=== PATIENT | male | born 1980 | race Caucasian/White ===

== ENCOUNTER 2021-04-29 16:46 | Emergency (ER) | payer OTHER, SELFPAY ==
--- NOTE | ~2021-04-29 | XR_ITS ---
XR chest 2V DATE: 04/29/2021 17:25 INDICATION: Productive cough for 2 days. Nonsmoker. TECHNIQUE: 2 views COMPARISON: None FINDINGS: Normal heart size. There is asymmetric soft tissue prominence in the right infrahilar area. There is ill-defined increased density in the right apical area and both lower lung zones suggesting bilateral pulmonary infiltrates, likely bilateral pneumonia. Continued radiographic follow-up is rec ommended to ensure complete clearing and to exclude any possible pulmonary mass.. No pleural effusion or pulmonary vascular congestion or pneumothorax. Diffuse idiopathic skeletal hyperostosis of the thoracic spine. IMPRESSION: Right apical bilateral lower lung infiltrates suggesting bilateral pneumonia Right infrahilar prominence may be due to pneumonia and/or mass or adenopathy. Short-term radiographi c follow-up is recommended to assure complete clearing. If the findings do not clear after appropriat e interval treatment, CT thorax is recommended to exclude any possible pulmonary mass or hilar mass l esion or lymphadenopathy. Reviewed, dictated and finalized at location A. ECT ADMINISTRATIVE ASSISTANT IMPRESSION: Right apical bilateral lower lung infiltrates suggesting bilateral pneumonia Right infrahilar prominence may be due to pneumonia and/or mass or adenopathy. Short-term radiographic follow-up is recommended to assure complete clearing. I f the findings do not clear after appropriate interval treatment, CT thorax is recommended to exclude any possible pulmonary mass or hilar mass lesion or lymp hadenopathy.
--- NOTE | 2021-04-29 16:55 | ED.URI ---
HPI - URI/Sore Throat General Chief Complaint: Upper Respiratory Infection Stated Complaint: Sinus,cough Source: patient and RN notes reviewed Mode of arrival: ambulatory Limitations: no limitations History of Present Illness HPI Narrative: 40-year-old male presented for complaint of productive cough of green sputum, onset 2 days ago. He also endorses body aches, headache, sinus pressure and congestion and fever of 103.4. Denies chest pain, shortness of breath, palpitations, vomiting or diarrhea. He states he has been having right ear pain for 2 weeks and has been trying to clean it with ear wax drops, stating it sounds like it has got water in it. Patient endorses approximately 4 weeks ago he and his girlfriend had similar symptoms, the girlfriend tested positive for Covid he tested negative. He has been taking Mucinex and Sudafed for symptoms MD elicited complaint: cough Related Data Home Medications Medication Instructions Recorded Confirmed atorvastatin 20 mg PO DAILY 04/29/21 04/29/21 baclofen 10 mg PO DAILY 04/29/21 04/29/21 famotidine 40 mg PO BID 04/29/21 04/29/21 fluconazole 150 mg PO WEEKLY 04/29/21 04/29/21 fluoxetine 40 mg PO DAILY 04/29/21 04/29/21 meloxicam 15 mg PO DAILY 04/29/21 04/29/21 metformin 500 mg PO DAILY 04/29/21 04/29/21 Allergies Allergy/AdvReac Type Severity Reaction Status Date / Time No Known Allergies Allergy Verified 04/29/21 17:14 Review of Systems Review of Systems: CONSTITUTIONAL: Endorses malaise, chills, sweats, fever EYES: Denies visual changes, redness, or discharge ENT: Reports rhinorrhea, congestion, sinus pain, otalgia CARDIOVASCULAR: Denies chest pain, palpitations, edema RESPIRATORY: Reports cough, post nasal drainage. Denies dyspnea GASTROINTESTINAL: Denies abdominal pain, nausea, vomiting, diarrhea SKIN: Denies rash or itching MUSCULOSKELETAL: Endorses myalgia NEUROLOGIC: Denies headache PMFSH Social History Social History Spiritual care concerns: No Exam Narrative: GENERAL: Ill-appearing, nontoxic no acute distress. Morbidly obese HEAD: Normocephalic EYES: PERRLA, conjunctivae clear ENT: Mucous membranes moist. Right TM unable to visualize due to cerumen; left canal erythematous with light reflex; no tragal tenderness. Oropharynx erythematous without lesions or exudate, no drooling, no hoarseness, no trismus, uvula midline. NECK: Supple. No lymphadenopathy CHEST: Lungs diminished and coarse throughout, No respiratory distress, speaks in full sentences. HEART: Regular rate and rhythm. No murmur heard. SKIN: Warm, dry, no rash. NEURO: Alert and oriented x3. PSYCH: Normal mood and affect Course Course Emergency Course: Pt was given copy of CXR, instructed to f/u with PCP for resolution. Discussed at length meds and s/s to go to ER. v/u. Pt is former smoker, hx diabetes, morbidly obese; therefore will treat with augmentin 2g BID plus Azithromycin. Understands steroids will raise blood sugar temporarily. Patient is aware of diagnosis, understands and agrees to treatment plan. Anticipatory guidance given. Patient agrees to follow-up as directed and is aware of reasons to seek care at the emergency department. v/u. Portions of this record may have been created with voice recognition software Level of Care: Express Care Visit Vital Signs Vital signs: Vital Signs Temperature 102.1 F H 04/29/21 16:56 Pulse Rate 100 04/29/21 16:56 Respiratory Rate 16 04/29/21 16:56 Blood Pressure 151/82 H 04/29/21 16:56 Pulse Oximetry 95 04/29/21 16:56 Temperature 102.1 F H 04/29/21 16:56 Pulse Rate 100 04/29/21 16:56 Respiratory Rate 16 04/29/21 16:56 Blood Pressure 151/82 H 04/29/21 16:56 Pulse Oximetry 95 04/29/21 16:56 reviewed MDM - URI/Sore Throat Differential Diagnosis Differential diagnosis: Likely upper respiratory infection, otitis media, sinusitis, viral infection, bronchit
[2021-04-29 16:56] VITALS: BP 151/82; PULSE 100; RESP 16; TEMP 38.9; O2SAT 95
[2021-04-29] MEDS: ACETAMINOPHEN 500 MG TABLET 1000 MG PO (17:23)
== END 2021-04-29 18:05 | disposition home or self-care (01) ==
PROVIDERS: Emergency Provider Nurse Practitioner Family; PCP Family Medicine
DX: J18.1 Lobar pneumonia, unspecified organism (principal); Z20.822 Contact with and (suspected) exposure to COVID-19; Z87.891 Personal history of nicotine dependence; E11.9 Type 2 diabetes mellitus without complications; E66.01 Morbid (severe) obesity due to excess calories; Z68.44 Body mass index [BMI] 60.0-69.9, adult
CPT/HCPCS: 71046; 87426; 87804; 99203; A9270; C9803; G0463

== ENCOUNTER 2021-06-19 09:30 | Outpatient (RCR) | payer OTHER, MEDICAID, SELFPAY ==
[2021-04-11 08:12] VITALS: BMI 69.5
[2021-04-11 08:15] VITALS: BMI 69.5
[2021-06-19 09:33] VITALS: BMI 69.8
[2021-06-19 09:36] VITALS: BMI 69.8
== END 2021-07-02 10:20 | disposition home or self-care (01) ==
LOC: ANHDMC 09:30
PROVIDERS: PCP Family Medicine; Visit Provider Family Medicine
DX: E11.9 Type 2 diabetes mellitus without complications (principal); Z71.3 Dietary counseling and surveillance
CPT/HCPCS: 97802; 97803

== ENCOUNTER 2021-10-17 09:23 | Outpatient (RCR) | payer OTHER, SELFPAY ==
[2021-10-17 10:23] VITALS: BMI 66.7
== END 2022-01-13 09:02 | disposition home or self-care (01) ==
LOC: ANHDMC 09:23
PROVIDERS: PCP Family Medicine; Visit Provider Family Medicine
DX: E11.9 Type 2 diabetes mellitus without complications (principal); Z71.3 Dietary counseling and surveillance
CPT/HCPCS: 97803

== ENCOUNTER → 2021-12-02 08:18 | Outpatient (CLI) | payer OTHER, SELFPAY ==
--- NOTE | ~2021-12-02 | XR_ITS ---
EXAMINATION: XR foot LT min 3V DATE: 12/02/2021 08:43 INDICATION: Ulcer at the plantar aspect of left great toe. TECHNIQUE: 5 views of left foot were obtained. COMPARISON: None. FINDINGS: Bone alignment is normal. No fracture. There is mild osteoarthritis of first metatarsophala ngeal joint and some of the interphalangeal and midfoot joints. There are enthesophytes at the fibre cement moulder ior and plantar aspects of calcaneal tuberosity. There is an ulcer at the plantar aspect of the great toe. IMPRESSION: 1. No evidence of osteomyelitis. 2. Mild polyarticular osteoarthritis. Reviewed, dictated and finalized at location B.
== END ==
PROVIDERS: PCP Podiatrist Foot & Ankle Surgery; Visit Provider Podiatrist Foot & Ankle Surgery
DX: L97.529 Non-pressure chronic ulcer of other part of left foot with unspecified severity (principal); M19.072 Primary osteoarthritis, left ankle and foot
CPT/HCPCS: 73630

== ENCOUNTER → 2022-02-09 17:55 | Outpatient (CLI) | payer OTHER, SELFPAY ==
--- NOTE | ~2022-02-09 | XR_ITS ---
EXAM: XR foot LT min 3V DATE: 02/09/2022 18:13 HISTORY: DIABETES MELLITUS WITH FOOT ULCER (POSTERIOR 1ST TOE) . COMPARISON: 12/02/2021. FINDINGS: Normal mineralization. No fracture or dislocation. No lytic or blastic lesion. Degenerativ e first MTP and midfoot changes. Achilles and plantar enthesopathy. No erosion or periosteal change. Shallow soft tissue ulceration on the plantar surface of the great toe. IMPRESSION: No radiographic evidence of osteomyelitis. Reviewed, dictated and finalized at location K. ER APPRENTICE [employer]
== END ==
PROVIDERS: PCP Physician Assistant; Visit Provider Podiatrist Foot & Ankle Surgery
DX: E13.621 Other specified diabetes mellitus with foot ulcer (principal)
CPT/HCPCS: 73630

== ENCOUNTER 2022-03-25 08:45 | Outpatient (RCR) | payer OTHER, SELFPAY ==
[2022-02-11 08:40] VITALS: BMI 70.2
[2022-02-11 09:10] VITALS: BMI 70.2
== END 2022-04-07 14:39 | disposition home or self-care (01) ==
LOC: ANHDMC 08:45
PROVIDERS: PCP Podiatrist Foot & Ankle Surgery; Visit Provider Family Medicine
DX: E11.9 Type 2 diabetes mellitus without complications (principal); Z71.3 Dietary counseling and surveillance; Z71.89 Other specified counseling
CPT/HCPCS: 97803; 99199; G0108

== ENCOUNTER → 2022-04-14 08:14 | Outpatient (CLI) | payer OTHER, SELFPAY ==
--- NOTE | ~2022-04-14 | XR_ITS ---
Left foot Technique: AP, oblique, and lateral views were obtained. Clinical History: Diabetic foot ulcer Findings: No acute fracture or dislocation is seen. Osseous alignment is anatomic. There is mild dege nerative change of the interphalangeal joint of the great toe. Probable soft tissue swelling of the g reat toe. Impression: No radiographic evidence for osteomyelitis. Mild degenerative change of the interphalangeal joint of the great toe. Probable soft tissue swelling of the great toe. Reviewed, dictated and finalized at location M. TANCE ABUSE CLINICIAN Impression: No radiographic evidence for osteomyelitis. Mild degenerative change of the interphalangeal joint of the great toe. Probable soft tissue swelling of the great toe.
== END ==
LOC: EXPTRAD 08:17
PROVIDERS: PCP Physician Assistant; Visit Provider Podiatrist Foot & Ankle Surgery
DX: E13.621 Other specified diabetes mellitus with foot ulcer (principal)
CPT/HCPCS: 73630

== ENCOUNTER 2022-05-01 08:04 | Outpatient (RCR) | payer OTHER, SELFPAY ==
[2022-05-01 08:51] VITALS: BMI 67.8
[2022-05-01 08:53] VITALS: BMI 67.8
== END 2022-07-22 10:21 | disposition home or self-care (01) ==
LOC: ANHDMC 08:04
PROVIDERS: PCP Physician Assistant; Visit Provider Family Medicine
DX: E11.9 Type 2 diabetes mellitus without complications (principal); Z71.3 Dietary counseling and surveillance; Z71.89 Other specified counseling
CPT/HCPCS: 97803; G0108